=== PATIENT | female | born 1990 | race African-American/Black ===

== ENCOUNTER 2017-08-31 20:08 | Emergency (ER) | payer BC ==
[2017-08-31] MEDS ORDERED: NORMAL SALINE 1000 ML 1,000 ML IV ONE (20:24)
--- NOTE | 2017-08-31 20:26 | ER Document Report ---
ED Medical Screen (RME) - General Chief Complaint: Weakness Stated Complaint: WEAKNESS Time Seen by Provider: 08/31/17 20:23 Notes: RAPID MEDICAL EVALUATION DISCLOSURE I have seen this patient as part of a Rapid Medical Evaluation and, if applicable, placed any initially appropriate orders. The patient will be seen and fully evaluated, including a full history and physical exam, by a provider ( in Main ED or Fast Track) when a room becomes available. 26-year-old female here with complaints of generalized weakness and full body cramps ongoing for the past few weeks. She states the symptoms started after she was placed on Prozac and phentermine and a blood pressure medication of which she does not know the name. She called her doctor's office and they told her these were normal side effects of the medications she was placed on. She is here today "because I feel really bad". EXAM Tachycardic Normal steady gait Physical Exam - Vital signs Vitals: Temp Pulse Resp BP Pulse Ox 97.8 F 134 H 16 139/97 H 100 08/31/17 20:16 08/31/17 20:16 08/31/17 20:16 08/31/17 20:16 08/31/17 20:16 Course - Vital Signs Vital signs: Temp Pulse Resp BP Pulse Ox 97.8 F 134 H 16 139/97 H 100 08/31/17 20:16 08/31/17 20:16 08/31/17 20:16 08/31/17 20:16 08/31/17 20:16
[2017-08-31 21:20] LABS: ABSOLUTE BASOPHILS # (AUTO) 0.1 10^3/uL (0.0-0.2); ABSOLUTE EOSINOPHILS # (AUTO) 0.1 10^3/uL (0.0-0.6); ABSOLUTE LYMPHOCYTES (AUTO) 3.6 10^3/uL (0.5-4.7); ABSOLUTE MONOCYTES (AUTO) 0.7 10^3/uL (0.1-1.4); ABSOLUTE NEUT (AUTO) 5.5 10^3/uL (1.7-8.2); BASOPHILS % (AUTO) 0.5 % (0-2); EOSINOPHILS % (AUTO) 1.4 % (0-6); HEMATOCRIT 41.7 % (36.0-47.0); HEMOGLOBIN 14.1 g/dL (12.0-15.5); MEAN CORPUSCULAR HEMOGLOBIN 28.5 pg (27.0-33.4); MEAN CORPUSCULAR HGB CONC 33.7 g/dL (32.0-36.0); MEAN CORPUSCULAR VOLUME 85 fl (80-97); MONOCYTES % (AUTO) 7.1 % (3-13); PLATELET COUNT 381 10^3/uL (150-450); RED BLOOD COUNT 4.94 10^6/uL (3.72-5.28); RED CELL DISTRIBUTION WIDTH 12.7 % (11.5-14.0); TOTAL CELLS COUNTED % (AUTO) 100 %
[2017-08-31 21:25] LABS: APPEARANCE,URINE CLEAR; BILIRUBIN,URINE NEGATIVE (NEGATIVE); COLOR,URINE YELLOW; GLUCOSE, URINE NEGATIVE (NEGATIVE); KETONES,URINE 20 mg/dL (NEGATIVE); LEUKOCYTE ESTERASE,URINE NEGATIVE (NEGATIVE); NITRITE,URINE NEGATIVE (NEGATIVE); PROTEIN,URINE NEGATIVE (NEGATIVE); URINE SPECIFIC GRAVITY 1.017
[2017-08-31 21:33] LABS: ALANINE AMINOTRANSFERASE 44 U/L (9-52); ALBUMIN 4.7 g/dL (3.5-5.0); ALKALINE PHOSPHATASE 68 U/L (38-126); ANION GAP 15 (5-19); ASPARTATE AMINO TRANSFERASE 45 U/L (14-36); BILIRUBIN,DIRECT 0.4 mg/dL (0.0-0.4); BILIRUBIN,TOTAL 0.7 mg/dL (0.2-1.3); BLOOD UREA NITROGEN 13 mg/dL (7-20); CALCIUM 10.5 mg/dL (8.4-10.2); CARBON DIOXIDE 29 mmol/L (22-30); CHLORIDE 95 mmol/L (98-107); GLUCOSE 104 mg/dL (75-110); PHOSPHORUS 3.8 mg/dL (2.5-4.5); POTASSIUM 4.2 mmol/L (3.6-5.0); SODIUM 139.4 mmol/L (137-145); TOTAL PROTEIN 9.2 g/dL (6.3-8.2)
--- NOTE | 2017-08-31 21:35 | EKG REPORT ---
SEVERITY:- OTHERWISE NORMAL ECG - SINUS TACHYCARDIA : Confirmed by: Randi Rico MD 31-Aug-2017 21:35:02
--- NOTE | 2017-08-31 22:26 | ER Document Report ---
ED General - General Chief Complaint: Weakness Stated Complaint: WEAKNESS Time Seen by Provider: 08/31/17 20:23 Mode of Arrival: Ambulatory Information source: Patient Notes: Patient complains of weakness and heart racing after being started on prozac, phentermine and a blood pressure medication last week. Denies syncope or fever. Past Medical History - General Information source: Patient - Social History Smoking Status: Never Smoker Chew tobacco use (# tins/day): No Frequency of alcohol use: None Drug Abuse: None Lives with: Spouse/Significant other Family History: Reviewed & Not Pertinent Patient has suicidal ideation: No Patient has homicidal ideation: No - Past Medical History Cardiac Medical History: Reports: Hx Hypertension, Other - tachycardia Renal/ Medical History: Denies: Hx Peritoneal Dialysis Review of Systems - Review of Systems Constitutional: See HPI EENT: No symptoms reported Cardiovascular: See HPI Respiratory: No symptoms reported Gastrointestinal: No symptoms reported Genitourinary: No symptoms reported Female Genitourinary: No symptoms reported Musculoskeletal: No symptoms reported Skin: No symptoms reported Hematologic/Lymphatic: No symptoms reported Neurological/Psychological: No symptoms reported Physical Exam - Vital signs Vitals: Temp Pulse Resp BP Pulse Ox 97.8 F 128 H 16 146/113 H 98 08/31/17 20:14 08/31/17 20:14 08/31/17 20:14 08/31/17 20:14 08/31/17 20:14 - Notes Notes: PHYSICAL EXAMINATION: GENERAL: Well-appearing, well-nourished and in no acute distress. HEAD: Atraumatic, normocephalic. EYES: Pupils equal round and reactive to light, extraocular movements intact, sclera anicteric, conjunctiva are normal. ENT: nares patent, oropharynx clear without exudates. Moist mucous membranes. NECK: Normal range of motion, supple without lymphadenopathy LUNGS: Breath sounds clear to auscultation bilaterally and equal. No wheezes rales or rhonchi. HEART: S1/S2 presents, no murmur appreciated. ABDOMEN: Soft, nontender, normoactive bowel sounds. No guarding, no rebound. No masses appreciated. EXTREMITIES: Normal range of motion, no pitting or edema. No cyanosis. NEUROLOGICAL: No focal neurological deficits. Moves all extremities spontaneously and on command. PSYCH: Normal mood, normal affect. SKIN: Warm, Dry, normal turgor, no rashes or lesions noted. Course - Re-evaluation Re-evalutation: Patient reports feeling weakness and "jittery" after starting new medications. Denies any other symptoms. Patient reports that she took the first dose of her phentermine three days ago which was when the symptoms started. Labs normal. Patient initially tachycardic in the 130's, now in the 112-115 range. Patient reports that she feels better after receiving the IV fluids ordered by triage provider. patient instructed to stop taking the phentermine as this is likely causing her symptoms. Patient has appointment scheduled next week with [facility] cardiology, patient instructed to stop taking phentermine until cleared by cardiology. - Vital Signs Vital signs: Temp Pulse Resp BP Pulse Ox 98.2 F 115 H 18 142/95 H 99 08/31/17 22:38 08/31/17 22:38 08/31/17 21:41 08/31/17 22:38 08/31/17 22:38 - Laboratory Result Diagrams: 08/31/17 21:00 08/31/17 21:00 Laboratory results interpreted by me: 08/31/17 08/31/17 20:40 21:00 Chloride 95 L Calcium 10.5 H AST 45 H Total Protein 9.2 H Urine Ketones 20 H Urine Urobilinogen 4.0 H - EKG Interpretation by Me Rate: Tachycardia Discharge - Discharge Clinical Impression: Tachycardia, Dizziness, Medication side effects Condition: Stable Disposition: HOME, SELF-CARE Additional Instructions: Medication Side Effects Your unpleasant symptoms are due to a drug you're taking. These symptoms are a common side effect of the medicine. It's not a true allergy. We stop any unnecessary drugs when bothersome side effects occur. Sometimes we'll substitute a different type of drug. In other cases, we must continue the drug. If so, we try to find a way to decrease the side effects. Many side effects decrease with time. Call us if the symptoms don't go away. Please continue to take your blood pressure medication as prescribed. Take your Prozac at night. STOP taking the phentermine immediately. Do not resume this medication until cleared by your [facility]finger chief. Please keep your appointment with [facility] cardiology that you already have scheduled for .
[2017-08-31 22:39] VITALS: BP 142/95
== END 2017-08-31 22:52 | disposition home or self-care (01) ==
LOC: ER 20:08
DX: R00.0 Tachycardia, unspecified (principal); R42 Dizziness and giddiness; T50.905A Adverse effect of unspecified drugs, medicaments and biological substances, initial encounter; I10 Essential (primary) hypertension; R53.1 Weakness
CPT/HCPCS: 93005; 99285; 96360; 36415; 83735; 84100; 85025; 81025; 80053; 81001; 93010; J7030